=== PATIENT | female | born 1960 | race Two or more races ===

== ENCOUNTER 2017-05-08 21:53 | Emergency (ER) | payer OTHER ==
[~2017-05-08] VITALS: Ht 157.5 cm; Wt 63.5 kg
[2017-05-08 22:11] VITALS: BP 147/78
[2017-05-08] MEDS ORDERED: HYDROcodone-ACET 5/325MG TAB PO ONE (22:30)
[2017-05-08 23:18] LABS: Urine Bacteria NONE SEEN /hpf (None Seen); Urine Blood TRACE /uL (Negative); Urine Mucus FEW (None Seen); Urine Specific Gravity 1.009 (1.001-1.035); Urine WBC 6 /hpf (0 - 5)
[2017-05-09] MEDS ORDERED: BACLOFEN 10 MG TAB PO ONE (01:30)
== END 2017-05-09 01:38 | disposition home or self-care (01) ==
LOC: EDBD 21:53 → ER 22:04
DX: S16.1XXA Strain of muscle, fascia and tendon at neck level, initial encounter (principal); S29.019A Strain of muscle and tendon of unspecified wall of thorax, initial encounter; V49.59XA Passenger injured in collision with other motor vehicles in traffic accident, initial encounter; Y93.89 Activity, other specified; Y99.8 Other external cause status; Y92.410 Unspecified street and highway as the place of occurrence of the external cause
CPT/HCPCS: 72125; 72128; 81001